=== PATIENT | female | born 1990 | race Caucasian/White ===

== ENCOUNTER 2020-07-12 07:06 | Inpatient (IN) | payer MEDICAID ==
[2020-07-12] MEDS ORDERED: Lidocaine 1% 50 ML MDV INJECT PRN (13:37)
[2020-07-12] MEDS ORDERED: Nalbuphine 10 MG/1 ML Vial IVPUSH PRN (13:37)
[2020-07-12] MEDS ORDERED: Sodium Chloride 0.9% 10 ML Syringe FLUSH PRN (13:37)
[2020-07-12] MEDS ORDERED: Oxytocin/Lactated Ringers 10 UNIT/1,000 ML BAG IV SCH ×2 (13:45)
--- NOTE | 2020-07-12 14:01 | PCM.LDHP ---
L&D History of Present Illness - General Date of Service: 07/12/20 Admit Problem/Dx: Patient Status Order with Admit Dx/Problem 07/12/20 13:37 Patient Status [ADT] Routine Admission Diagnosis/Problem Admission Diagnosis/Problem Source of Information: Patient History Limitations: Reports: No Limitations - History of Present Illness Introduction:: Patient is a 29 year old GBS - O- SAB x 1 who present today at 39-3 weeks gestational age for induction of labor. She denies any contractions, vaginal bleeding or leaking of fluid. She reports good movement. Present Illness Comments:: Kylie Poole is a GBS- O- 29 year old SAB x 1 female at 39-3 weeks gestation age (NIMISHA 07/16/20) by 12 week US and LMP who presents today for induction of labor. Patient noted tobacco use until 20 weeks and reports a history of anxiety. Patient received routine care. First trimester pap smear demonstrated LGSIL. Colposcopy done that demonstrated mile white epithelium at the 9 o'clock position. No other known complications during her . She received flu vaccine 04/21. Tdap vaccine not given. She received RhoGAM 04/23/20. She does report that her significant other tested positive for COVID-19 5 weeks prior; she reports that she had similar symptoms but tested negative. She continues to have decreased taste and smell but is otherwise doing fine. OBGYN History 04/11/19: complete spontaneous at 6 weeks gestational age G2: current labs: Blood type:O- Antibody screen: Negative Rubella status: non immune Hepatitis B surface antigen: negative RPR: negative HIV: negative Gonorrhea: Negative Chlamydia: negative Anatomy US: Uriostegui IUP with normal growth, CHRISS, placental location and anatomy One hour glucose tolerance test: 104 Second trimester hemoglobin: 11.8 Platelets: 230,000 GBS status: negative - Related Data Allergies/Adverse Reactions: Allergies Allergy/AdvReac Type Severity Reaction Status Date / Time Latex, Natural Rubber Allergy Hives Verified 07/12/20 13:36 Home Medications: Home Meds Pnv,Calcium 72/Iron/Folic Acid [ Vitamin with Low Iron] 1 each PO DAILY 07/12/20 [History] Past Medical History - Past Health History Medical/Surgical History: Denies Medical/Surgical History Genitourinary History: Reports: Other (See Below) (Nephrolithiasis) Psychiatric History: Reports: Anxiety Social & Family History - Family History Family Medical History: No Pertinent Family History H&P Review of Systems - Review of Systems: Review Of Systems: See Below General: Reports: No Symptoms HEENT: Reports: Other (Decreased taste and smell). Denies: Ear Pain, Eye Pain, Rhinitis, Sinus Congestion, Sore Throat Pulmonary: Reports: No Symptoms Cardiovascular: Reports: No Symptoms Gastrointestinal: Reports: No Symptoms Genitourinary: Reports: No Symptoms Musculoskeletal: Reports: No Symptoms Skin: Reports: No Symptoms Psychiatric: Reports: No Symptoms Neurological: Reports: No Symptoms L&D Exam - Exam Exam: See Below - Vital Signs Weight: 206 lb - OB Specific Movement: Active Heart Tones: Present - Salas Score Salas Score Cervix Position: Midposition Salas Score Consistency: Medium Salas Score Effacement: 51-70% Salas Score Dilation: 1-2 cm Salas Score Infant's Station: -3 Salas Score Total: 5 - Exam General: Alert, Oriented HEENT: Conjunctiva Clear, EOMI, Hearing Intact Neck: Supple, Trachea Midline Lungs: Clear to Auscultation, Normal Respiratory Effort Cardiovascular: Regular Rate, Regular Rhythm GI/Abdominal Exam: Normal Bowel Sounds, Soft, Non-Tender Extremities: Normal Inspection, Non-Tender, No Pedal Edema, Normal Capillary Refill Skin: Warm, Dry, Intact Psychiatric: Alert, Normal Affect, Normal Mood - Patient Data Result Diagrams: 07/12/20 13:50 - Problem List (1) Not immune to rubella SNOMED Code(s): 683679951 ICD Code: Z78.9 - OTHER SPECIFIED HEALTH STATUS Status: Acute Current Visit: Yes (2) 39 weeks gestation of SNOMED Code(s): 74345410 ICD Code: Z3A.39 - 39 WEEKS GESTATION OF Status: Acute Current Visit: Yes (3) Encounter for induction of labor SNOMED Code(s): 874669731 ICD Code: Z34.90 - ENCNTR FOR SUPRVSN OF NORMAL , UNSP, UNSP TRIMESTER Status: Acute Current Visit: Yes (4) Rh negative status during SNOMED Code(s): 706738656 ICD Code: O26.899 - OTH RELATED CONDITIONS, UNSPECIFIED TRIMESTER; Z67.91 - UNSPECIFIED BLOOD TYPE, RH NEGATIVE Status: Acute Current Visit: Yes (5) Tobacco use during SNOMED Code(s): 425923661868380 ICD Code: O99.330 - SMOKING (TOBACCO) COMPLICATING , UNSP TRIMESTER Status: Acute Current Visit: Yes Problem List Initiated/Reviewed/Updated: Yes Orders Last 24hrs: Active Orders 24 hr Category Date Time Status Patient Status [ADT] Routine ADT 07/12/20 13:37 Active Activity as Tolerated [RC] PFP Care 07/12/20 13:37 Active Communication Order [RC] ASDIRECTED Care 07/12/20 13:37 Active Heart Tones [RC] ASDIRECTED Care 07/12/20 13:38 Active Non Stress Test [RC] PER UNIT ROUTINE Care 07/12/20 13:37 Active Notify Provider [RC] PFP Care 07/12/20 13:37 Active Notify Provider [RC] PRN Care 07/12/20 13:37 Active Peripheral IV Care [RC] . DIRECTED Care 07/12/20 13:38 Active Urinary Catheter Assessment [RC] ASDIRECTED Care 07/12/20 13:37 Active Vital Signs [RC] PER UNIT ROUTINE Care 07/12/20 13:37 Active Regular Diet [DIET] Diet 07/12/20 Lunch Active BLOOD BANK HOLD SPECIMEN [BBK] Routine Lab 07/12/20 13:37 Ordered CBC WITH AUTO DIFF [HEME] Routine Lab 07/12/20 13:37 Ordered CORONAVIRUS COVID-19 LEE ANN [MOLEC] Stat Lab 07/12/20 13:40 Ordered RAPID PLASMA REAGIN,RPR [CHEM] Routine Lab 07/12/20 13:37 Ordered Lactated Ringers [Ringers, Lactated] 1,000 ml Med 07/12/20 13:45 Active IV ASDIRECTED Lidocaine 1% [Xylocaine 1%] Med 07/12/20 13:37 Active 50 ml INJECT ONETIME PRN Nalbuphine [Nubain] Med 07/12/20 13:37 Active 10 mg IVPUSH Q2H PRN Oxytocin/Lactated Ringers [Pitocin in LR 10 Units/1,000 Med 07/12/20 13:45 Active ML] 10 unit in 1,000 ml IV .CONTINUOUS Oxytocin/Lactated Ringers [Pitocin in LR 10 Units/1,000 Med 07/12/20 13:45 Active ML] 10 unit in 1,000 ml IV TITRATE Sodium Chloride 0.9% [Saline Flush] Med 07/12/20 13:37 Active 10 ml FLUSH ASDIRECTED PRN Electronic Heart Tones Ext w TOCO [WOMSER] Oth 07/12/20 13:37 Ordered Routine Electronic Heart Tones Internal [WOMSER] Per Unit Oth 07/12/20 13:37 Ordered Routine Peripheral IV Insertion Adult [OM.PC] Routine Oth 07/12/20 13:37 Ordered Resuscitation Status Routine Resus Stat 07/12/20 13:37 Ordered Assessment/Plan Comment:: 29 year old at 39-3 weeks gestational age who presented for induction of labor. 1. O- with negative antibody screen - RhoGAM given 04/23/20; RhoGAM to be given following delivery 2. Rubella nonimmune - vaccine indicated prior to discharge 3. GBS negative 4. LGSIL; status post colposcopy, recheck pap smear and colposcopy 5. Tobacco use during , quit at 20 weeks gestational age 6. Induction of labor with Cytotec for cervical ripening, Pitocin augmentation as indicated. Consider AROM. 7. Continuous monitoring 7. Small amounts of regular diet 8. Desires epidural 9. Activity as tolerated 10. Anticipate vaginal delivery unless otherwise indicated 11. Plans to breastfeed
[2020-07-12] MEDS: Lactated Ringers 1,000 ML IV SCH (14:10)
--- NOTE | 2020-07-12 15:57 | PCM.PNLD ---
Labor Progress Note - VS & Meds Vital Signs: Last Vital Signs Temp 36.8 C 07/12/20 13:37 Pulse 77 07/12/20 15:00 Resp 16 07/12/20 13:37 BP 107/76 07/12/20 15:00 Pulse Ox Active Medications: Current Medications Oxytocin/Lactated Ringer's (Pitocin In Lr 10 Units/1,000 Ml) 10 unit in 1,000 mls @ 12 mls/hr IV TITRATE ELVIA; Protocol Last Titration: 07/12/20 15:23 Dose: 6 munits/min, 36 mls/hr Documented by: Oxytocin/Lactated Ringer's (Pitocin In Lr 10 Units/1,000 Ml) 10 unit in 1,000 mls @ 500 mls/hr IV .CONTINUOUS ELVIA Lactated Ringer's (Ringers, Lactated) 1,000 mls @ 100 mls/hr IV ASDIRECTED ELVIA Last Admin: 07/12/20 14:10 Dose: 100 mls/hr Documented by: Lidocaine HCl (Lidocaine 1% 50 Ml Mdv) 50 ml INJECT ONETIME PRN PRN Reason: Breakthrough Pain Nalbuphine HCl (Nalbuphine 10 Mg/1 Ml Vial) 10 mg IVPUSH Q2H PRN PRN Reason: Pain Sodium Chloride (Sodium Chloride 0.9% 10 Ml Syringe) 10 ml FLUSH ASDIRECTED PRN PRN Reason: Keep Vein Open - Uterine Contractions Uterine Monitoring Mode: External [place] Tract Contraction Intensity: Irritability Uterine Resting Tone: Soft - Monitoring Monitor Mode: External Ultrasound Heart Rate (FHR) Baseline: 130 Heart Rate (FHR) Variability: Moderate (6-25 bmp) Accelerations: Present, 10x10 (=/<32 wks) Decelerations: None - Vaginal Exam Dilation (cm): 1-2 Effacement (Percent): 50 Station: -3 Cervical Position: Posterior - Labor Progress (Free Text) Labor Progress: Assumed care of this patient from Dr. Suero. Patient here for IOL. Just turned up to 6 of pitocin. Reviewed would like to add in method of cervical ripening. Discussed option of chang bulb, but patient concerned for discomfort. Reviewed we could otherwise consider pause of Pitocin and placement of Cytotec. She prefers this option. Will stop and start Cytotec in about 45 minutes.
[2020-07-12] MEDS: Misoprostol 25 MCG (1/4 of 100 MCG) Tab VAG PRN ×2 (16:42→20:32)
[2020-07-12] MEDS ORDERED: fentaNYL 100 MCG/2 ML SDV EPIDUR PRN (21:40)
[2020-07-12] MEDS ORDERED: ePHEDrine 50 MG/ML SDV IVPUSH PRN (21:40)
[2020-07-12] MEDS ORDERED: diphenhydrAMINE 50 MG/ML SDV IVPUSH PRN (21:40)
[2020-07-13] MEDS: Misoprostol 25 MCG (1/4 of 100 MCG) Tab VAG PRN (00:41)
--- NOTE | 2020-07-13 07:04 | PCM.PNLD ---
Labor Progress Note - VS & Meds Vital Signs: Last Vital Signs Temp 36.8 C 07/12/20 13:37 Pulse 84 07/12/20 15:30 Resp 16 07/12/20 13:37 BP 108/57 L 07/12/20 15:30 Pulse Ox Active Medications: Current Medications Diphenhydramine HCl (Diphenhydramine 50 Mg/Ml Sdv) 25 mg IVPUSH Q6H PRN PRN Reason: pruritis Ephedrine Sulfate (Ephedrine 50 Mg/Ml Sdv) 5 mg IVPUSH ASDIRECTED PRN PRN Reason: Hypotension Fentanyl (Fentanyl 100 Mcg/2 Ml Sdv) 100 mcg EPIDUR Q3H PRN PRN Reason: Pain Fentanyl/Bupivacaine HCl (Bupivacaine/Fentanyl/Ns 100 Ml Bag) 100 ml EPIDUR ASDIRECTED PRN PRN Reason: Pain Oxytocin/Lactated Ringer's (Pitocin In Lr 10 Units/1,000 Ml) 10 unit in 1,000 mls @ 12 mls/hr IV TITRATE ELVIA; Protocol Last Titration: 07/13/20 06:09 Dose: 0 munits/min, 0 mls/hr Documented by: Oxytocin/Lactated Ringer's (Pitocin In Lr 10 Units/1,000 Ml) 10 unit in 1,000 mls @ 500 mls/hr IV .CONTINUOUS ELVIA Lactated Ringer's (Ringers, Lactated) 1,000 mls @ 100 mls/hr IV ASDIRECTED ELVIA Last Infusion: 07/13/20 06:15 Dose: 100 mls/hr Documented by: Lidocaine HCl (Lidocaine 1% 50 Ml Mdv) 50 ml INJECT ONETIME PRN PRN Reason: Breakthrough Pain Nalbuphine HCl (Nalbuphine 10 Mg/1 Ml Vial) 10 mg IVPUSH Q2H PRN PRN Reason: Pain Sodium Chloride (Sodium Chloride 0.9% 10 Ml Syringe) 10 ml FLUSH ASDIRECTED PRN PRN Reason: Keep Vein Open Discontinued Medications Misoprostol (Misoprostol 25 Mcg (1/4 Of 100 Mcg) Tab) 25 mcg VAG Q4H PRN PRN Reason: cervical ripening Last Admin: 07/13/20 00:41 Dose: 25 mcg Documented by: - Uterine Contractions Uterine Monitoring Mode: External [place] Contraction Intensity: Mild to Moderate Uterine Resting Tone: Soft - Monitoring Monitor Mode: External Ultrasound Heart Rate (FHR) Baseline: 135 Heart Rate (FHR) Variability: Moderate (6-25 bmp) Accelerations: Present, 15x15 Decelerations: Late, Intermittent (<50% x 20 min) - Vaginal Exam Dilation (cm): 2 Effacement (Percent): 70 Station: -2 Cervical Position: Posterior - Labor Progress (Free Text) Labor Progress: S/p 3 doses of Cytotec over night. Was started on pitocin. Was only on 2 and started having some late decelerations. Resolved with discontinuing pitocin. AROM done with release of clear fluid. Will monitor for a few hours. Currently rates contractions 3/10. If not more uncomfortable can consider restarting pitocin
[2020-07-13] MEDS: Lactated Ringers 1,000 ML IV SCH ×4 (13:10→22:05)
--- NOTE | 2020-07-13 13:20 | PCM.PREANE ---
Preanesthetic Assessment - Procedure Proposed Procedure: Epidural - Anesthesia/Transfusion/Family Hx Anesthesia History: No Prior Anesthesia Family History of Anesthesia Reaction: No Transfusion History: No Prior Transfusion(s) Intubation History: Unknown - Review of Systems General: No Symptoms Pulmonary: No Symptoms (Significant other + for Covid/patient tests negative: decreased taste and smell noted, but resumed currently: quit smoking at 20 weeks.) Cardiovascular: No Symptoms Gastrointestinal: No Symptoms (GERD) Neurological: No Symptoms (chronic back pain: 01/10) Other: Reports: Anxiety - Physical Assessment NPO Status Date: 07/13/20 NPO Status Time: 07:00 Vital Signs: Last Vital Signs Temp 36.8 C 07/12/20 13:37 Pulse 87 07/13/20 08:01 Resp 16 07/12/20 13:37 BP 117/71 07/13/20 05:31 Pulse Ox Height: 1.6 m Weight: 93.44 kg ASA Class: 2 Mental Status: Alert & Oriented x3 Airway Class: Mallampati = 2 Dentition: Reports: Normal Dentition, Caries Thyro-Mental Finger Breadths: 3 Mouth Opening Finger Breadths: 3 ROM/Head Extension: Full Lungs: Clear to Auscultation, Normal Respiratory Effort Cardiovascular: Regular Rate, Regular Rhythm, No Murmurs - Lab Values: Laboratory Last Values WBC 9.14 K/mm3 (3.98-10.04) 07/12/20 13:50 RBC 4.35 M/mm3 (3.98-5.22) 07/12/20 13:50 Hgb 12.3 gm/dl (11.2-15.7) 07/12/20 13:50 Hct 36.7 % (34.1-44.9) 07/12/20 13:50 MCV 84.4 fl (79.4-94.8) 07/12/20 13:50 MCH 28.3 pg (25.6-32.2) 07/12/20 13:50 MCHC 33.5 g/dl (32.2-35.5) 07/12/20 13:50 RDW Std Deviation 44.7 fL (36.4-46.3) 07/12/20 13:50 Plt Count 256 K/mm3 (182-369) 07/12/20 13:50 MPV 10.7 fl (9.4-12.3) 07/12/20 13:50 Neut % (Auto) 74.0 % (34.0-71.1) H 07/12/20 13:50 Lymph % (Auto) 15.0 % (19.3-51.7) L 07/12/20 13:50 Maries % (Auto) 9.4 % (4.7-12.5) 07/12/20 13:50 Eos % (Auto) 1.1 (0.7-5.8) 07/12/20 13:50 Baso % (Auto) 0.2 % (0.1-1.2) 07/12/20 13:50 Neut # (Auto) 6.76 K/mm3 (1.56-6.13) H 07/12/20 13:50 Lymph # (Auto) 1.37 K/mm3 (1.18-3.74) 07/12/20 13:50 Maries # (Auto) 0.86 K/mm3 (0.24-0.36) H 07/12/20 13:50 Eos # (Auto) 0.10 K/mm3 (0.04-0.36) 07/12/20 13:50 Baso # (Auto) 0.02 K/mm3 (0.01-0.08) 07/12/20 13:50 RPR Non-reactive (NONREACTIVE) 07/12/20 13:50 SARS-CoV-2 RNA (LEE ANN) Negative (NEGATIVE) 07/12/20 14:17 Above labs reviewed and noted and within acceptable ranges to proceed with epidural as requested. - Allergies Allergies/Adverse Reactions: Allergies Allergy/AdvReac Type Severity Reaction Status Date / Time Latex, Natural Rubber Allergy Hives Verified 07/12/20 13:36 - Anesthesia Plan Pre-Op Medication Ordered: None - Acknowledgements Anesthesia Type Planned: Epidural Pt an Appropriate Candidate for the Planned Anesthesia: Yes Alternatives and Risks of Anesthesia Discussed w Pt/Guardian: Yes Pt/Guardian Understands and Agrees with Anesthesia Plan: Yes PreAnesthesia Questionnaire - Past Health History Medical/Surgical History: Denies Medical/Surgical History HEENT History: Reports: None Genitourinary History: Reports: Other (See Below) OTA History: Reports: Psychiatric History: Reports: Anxiety - Infectious Disease History Infectious Disease History: Reports: None - Past Surgical History HEENT Surgical History: Reports: Oral Surgery - SUBSTANCE USE Tobacco Use Status *Q: Former Tobacco User Tobacco Use Within Last Twelve Months: Cigarettes Second Hand Smoke Exposure: No Recreational Drug Use History: No - HOME MEDS Home Medications: Home Meds Pnv,Calcium 72/Iron/Folic Acid [ Vitamin with Low Iron] 1 each PO DAILY 07/12/20 [History] - CURRENT (IN HOUSE) MEDS Current Meds: Current Medications Diphenhydramine HCl (Diphenhydramine 50 Mg/Ml Sdv) 25 mg IVPUSH Q6H PRN PRN Reason: pruritis Ephedrine Sulfate (Ephedrine 50 Mg/Ml Sdv) 5 mg IVPUSH ASDIRECTED PRN PRN Reason: Hypotension Fentanyl (Fentanyl 100 Mcg/2 Ml Sdv) 100 mcg EPIDUR Q3H PRN PRN Reason: Pain Fentanyl/Bupivacaine HCl (Bupivacaine/Fentanyl/Ns 100 Ml Bag) 100 ml EPIDUR ASDIRECTED PRN PRN Reason: Pain Oxytocin/Lactated Ringer's (Pitocin In Lr 10 Units/1,000 Ml) 10 unit in 1,000 mls @ 12 mls/hr IV TITRATE ELVIA; Protocol Last Titration: 07/13/20 06:09 Dose: 0 munits/min, 0 mls/hr Documented by: Oxytocin/Lactated Ringer's (Pitocin In Lr 10 Units/1,000 Ml) 10 unit in 1,000 mls @ 500 mls/hr IV .CONTINUOUS ELVIA Lactated Ringer's (Ringers, Lactated) 1,000 mls @ 100 mls/hr IV ASDIRECTED ELVIA Last Admin: 07/13/20 13:10 Dose: 999 mls/hr Documented by: Lidocaine HCl (Lidocaine 1% 50 Ml Mdv) 50 ml INJECT ONETIME PRN PRN Reason: Breakthrough Pain Nalbuphine HCl (Nalbuphine 10 Mg/1 Ml Vial) 10 mg IVPUSH Q2H PRN PRN Reason: Pain Sodium Chloride (Sodium Chloride 0.9% 10 Ml Syringe) 10 ml FLUSH ASDIRECTED PRN PRN Reason: Keep Vein Open Discontinued Medications Misoprostol (Misoprostol 25 Mcg (1/4 Of 100 Mcg) Tab) 25 mcg VAG Q4H PRN PRN Reason: cervical ripening Last Admin: 07/13/20 00:41 Dose: 25 mcg Documented by:
[2020-07-13] MEDS: Bupivacaine/fentaNYL/NS 100 ML Bag EPIDUR PRN ×2 (13:26→22:03)
--- NOTE | 2020-07-13 16:28 | PCM.PNLD ---
Labor Progress Note - VS & Meds Vital Signs: Last Vital Signs Temp 36.8 C 07/12/20 13:37 Pulse 87 07/13/20 08:01 Resp 16 07/12/20 13:37 BP 117/71 07/13/20 05:31 Pulse Ox Active Medications: Current Medications Diphenhydramine HCl (Diphenhydramine 50 Mg/Ml Sdv) 25 mg IVPUSH Q6H PRN PRN Reason: pruritis Ephedrine Sulfate (Ephedrine 50 Mg/Ml Sdv) 5 mg IVPUSH ASDIRECTED PRN PRN Reason: Hypotension Fentanyl (Fentanyl 100 Mcg/2 Ml Sdv) 100 mcg EPIDUR Q3H PRN PRN Reason: Pain Last Admin: 07/13/20 13:27 Dose: 100 mcg Documented by: Fentanyl/Bupivacaine HCl (Bupivacaine/Fentanyl/Ns 100 Ml Bag) 100 ml EPIDUR ASDIRECTED PRN PRN Reason: Pain Last Admin: 07/13/20 13:26 Dose: 100 ml Documented by: Oxytocin/Lactated Ringer's (Pitocin In Lr 10 Units/1,000 Ml) 10 unit in 1,000 mls @ 12 mls/hr IV TITRATE ELVIA; Protocol Last Titration: 07/13/20 15:15 Dose: 3 munits/min, 18 mls/hr Documented by: Oxytocin/Lactated Ringer's (Pitocin In Lr 10 Units/1,000 Ml) 10 unit in 1,000 mls @ 500 mls/hr IV .CONTINUOUS ELVIA Lactated Ringer's (Ringers, Lactated) 1,000 mls @ 100 mls/hr IV ASDIRECTED ELVIA Last Admin: 07/13/20 13:47 Dose: 250 mls/hr Documented by: Lidocaine HCl (Lidocaine 1% 50 Ml Mdv) 50 ml INJECT ONETIME PRN PRN Reason: Breakthrough Pain Nalbuphine HCl (Nalbuphine 10 Mg/1 Ml Vial) 10 mg IVPUSH Q2H PRN PRN Reason: Pain Sodium Chloride (Sodium Chloride 0.9% 10 Ml Syringe) 10 ml FLUSH ASDIRECTED PRN PRN Reason: Keep Vein Open Discontinued Medications Misoprostol (Misoprostol 25 Mcg (1/4 Of 100 Mcg) Tab) 25 mcg VAG Q4H PRN PRN Reason: cervical ripening Last Admin: 03/13/21 00:41 Dose: 25 mcg Documented by: - Uterine Contractions Uterine Monitoring Mode: External [place] Tract Contraction Intensity: Moderate to Strong Uterine Resting Tone: Soft - Monitoring Monitor Mode: External Ultrasound Heart Rate (FHR) Baseline: 145 Heart Rate (FHR) Variability: Moderate (6-25 bmp) Accelerations: Present, 15x15 Decelerations: Late, Intermittent (<50% x 20 min) Strip Review: Category II - Vaginal Exam Dilation (cm): 3 Effacement (Percent): 90 Station: -2 Cervical Position: Midposition - Labor Progress (Free Text) Labor Progress: Patient became more uncomfortable throughout the day. Got her epidural around 1330. Pitocin started 1430. Just recently only on 3 but with again episode of recurrent late decelerations. Pitocin discontinued by RN. I presented. Resolution of tracing findings. IUPC placed. Pitocin restarted at 1. Reviewed findings. If unable to augment may require delivery via c-s. She expressed understanding
--- NOTE | 2020-07-13 21:36 | PCM.PNLD ---
Labor Progress Note - VS & Meds Vital Signs: Last Vital Signs Temp 36.8 C 07/12/20 13:37 Pulse 87 07/13/20 08:01 Resp 16 07/12/20 13:37 BP 117/71 07/13/20 05:31 Pulse Ox Active Medications: Current Medications Diphenhydramine HCl (Diphenhydramine 50 Mg/Ml Sdv) 25 mg IVPUSH Q6H PRN PRN Reason: pruritis Ephedrine Sulfate (Ephedrine 50 Mg/Ml Sdv) 5 mg IVPUSH ASDIRECTED PRN PRN Reason: Hypotension Fentanyl (Fentanyl 100 Mcg/2 Ml Sdv) 100 mcg EPIDUR Q3H PRN PRN Reason: Pain Last Admin: 07/13/20 13:27 Dose: 100 mcg Documented by: Fentanyl/Bupivacaine HCl (Bupivacaine/Fentanyl/Ns 100 Ml Bag) 100 ml EPIDUR ASDIRECTED PRN PRN Reason: Pain Last Admin: 07/13/20 13:26 Dose: 100 ml Documented by: Oxytocin/Lactated Ringer's (Pitocin In Lr 10 Units/1,000 Ml) 10 unit in 1,000 mls @ 12 mls/hr IV TITRATE ELVIA; Protocol Last Titration: 07/13/20 21:17 Dose: 3 munits/min, 18 mls/hr Documented by: Oxytocin/Lactated Ringer's (Pitocin In Lr 10 Units/1,000 Ml) 10 unit in 1,000 mls @ 500 mls/hr IV .CONTINUOUS ELVIA Lactated Ringer's (Ringers, Lactated) 1,000 mls @ 100 mls/hr IV ASDIRECTED ELVIA Last Admin: 07/13/20 17:23 Dose: 250 mls/hr Documented by: Lidocaine HCl (Lidocaine 1% 50 Ml Mdv) 50 ml INJECT ONETIME PRN PRN Reason: Breakthrough Pain Nalbuphine HCl (Nalbuphine 10 Mg/1 Ml Vial) 10 mg IVPUSH Q2H PRN PRN Reason: Pain Sodium Chloride (Sodium Chloride 0.9% 10 Ml Syringe) 10 ml FLUSH ASDIRECTED PRN PRN Reason: Keep Vein Open Discontinued Medications Misoprostol (Misoprostol 25 Mcg (1/4 Of 100 Mcg) Tab) 25 mcg VAG Q4H PRN PRN Reason: cervical ripening Last Admin: 03/13/21 00:41 Dose: 25 mcg Documented by: - Uterine Contractions Uterine Monitoring Mode: IUPC Contraction Intensity: Strong Uterine Resting Tone: Soft - Monitoring Monitor Mode: External Ultrasound Heart Rate (FHR) Baseline: 140 Heart Rate (FHR) Variability: Moderate (6-25 bmp) Accelerations: Present, 15x15 Strip Review: Category I - Vaginal Exam Dilation (cm): 5 Effacement (Percent): 80 Station: -1 Cervical Position: Midposition - Labor Progress (Free Text) Labor Progress: Has been on 2 of pitocin since about 1630. At 1630 was 3 cm per my check. At 1900 was 5 cm per RN. Currently at 2110 is still about 5 cm. Reviewed have not previously increased pitocin further due to late decelerations that tend to occur. We can gently try to go up, but might not be able to augment beyond value of 2. If this is the case it might not be we are able to get her completely dilated. Patient and family express understanding. Still desire to continue to work towards vaginal delivery
[2020-07-14] MEDS ORDERED: Bupivacaine 0.25% 10 ML SDV ONE
[2020-07-14] MEDS: Lactated Ringers 1,000 ML IV SCH (04:35)
[2020-07-14] MEDS ORDERED: Metoclopramide 10 MG/2 ML SDV IVPUSH ONE (05:37)
[2020-07-14] MEDS ORDERED: ceFAZolin 2 GM in Premix Bag 1 BAG IV ONE (05:37)
[2020-07-14] MEDS ORDERED: Citric Acid/Sodium Citrate Solution 30 ML Cup PO ONE (05:37)
[2020-07-14] MEDS ORDERED: Azithromycin 500 MG in Sodium Chloride 0.9% 250 ML IV ONE (05:37)
--- NOTE | 2020-07-14 05:37 | PCM.SN.2 ---
- Free Text/Narrative Note: At 1230 patient thought to be 6-7 on RN exam. Just checked about 3.5 hours later and noted to be actually potentially less dilated per same RN. Reviewed with patient. At this point have concerns for CPD. Would recommend . Reviewed risks/benefits. Family agrees. OR and Peds to be notified Sheryl Huff MD
[2020-07-14] MEDS ORDERED: HYDROmorphone 0.5 MG/0.5 ML Syringe IVPUSH PRN (07:01)
[2020-07-14] MEDS ORDERED: Ondansetron 4 MG/2 ML SDV IVPUSH PRN (07:01)
[2020-07-14] MEDS ORDERED: diphenhydrAMINE 50 MG/ML SDV IVPUSH PRN ×2 (07:01→09:10)
[2020-07-14] MEDS ORDERED: ePHEDrine 50 MG/ML SDV IVPUSH PRN (07:01)
[2020-07-14] MEDS ORDERED: fentaNYL 100 MCG/2 ML SDV IVPUSH PRN (07:01)
[2020-07-14] MEDS ORDERED: fentaNYL 100 MCG/2 ML SDV ONE (07:12)
[2020-07-14] MEDS ORDERED: Oxytocin 10 Units/1 ML SDV ONE (07:12)
[2020-07-14] MEDS ORDERED: Ondansetron 4 MG/2 ML SDV ONE (07:12)
[2020-07-14] MEDS ORDERED: Lactated Ringers 2,000 ML ONE (07:12)
[2020-07-14] MEDS ORDERED: Ketorolac 30 MG/ML SDV ONE (07:12)
[2020-07-14] MEDS ORDERED: ceFAZolin 1 GM Vial ONE (07:12)
[2020-07-14] MEDS ORDERED: Lidocaine 2% with EPINEPHrine 1:200,000 20 ML SDV ONE (07:16)
--- NOTE | 2020-07-14 07:59 | PCM.POSTAN ---
POST ANESTHESIA ASSESSMENT - MENTAL STATUS Mental Status: Alert - VITAL SIGNS Vital Signs: Last Vital Signs Temp 38.1 07/14/20 0748 Pulse 140 07/14/20 0748 Resp 14 07/14/20 0748 BP 104/76 07/14/20 0748 Pulse Ox 97% 07/14/20 0748 - RESPIRATORY Respiratory Status: Respiratory Rate WNL, Airway Patent, O2 Saturation Stable - CARDIOVASCULAR CV Status: Pulse Rate WNL, Blood Pressure Stable - GASTROINTESTINAL GI Status: No Symptoms - POST OP HYDRATION Hydration Status: Adequate & Stable
[2020-07-14] MEDS ORDERED: Morphine PF 10 MG/10 ML SDV ONE (08:00)
--- NOTE | 2020-07-14 08:33 | PCM.OPNOTE ---
- General Post-Op/Procedure Note Date of Surgery/Procedure: 07/14/20 Operative Procedure(s): Primary low transverse Findings: Baby boy in vertex presentation, ROP. AGPARS of 8 & 9. Weight of 8 lbs 4 oz. Normal appearance of the uterus, fallopian tubes, and ovaries. Pre Op Diagnosis: 39 weeks. FTP in 1st stage of labor Post-Op Diagnosis: Same. ROP presentation Anesthesia Technique: Epidural Primary Surgeon: Sheryl Huff Secondary Surgeon: Marianne Trimble Anesthesia Provider: Pricilla Max Reason Philosophy Faculty Member Was Necessary: BMI of patient. Speed and safety of procedure Pathology: Cold blood collected. Placenta discarded Fluid Replacement, Intraop: 800 Output, Urine Amount: 275 EBL in mLs: 1,000 Complications: None Condition: Good Free Text/Narrative:: The risks, benefits, indications, potential complications, and alternatives were explained to the patient and informed consent obtained. After induction of anesthesia, the patient was placed in a supine position and then draped and prepped in the usual sterile manner. A Pfannenstiel incision was made and carried down through the subcutaneous tissue to the fascia. Fascial incision was made and extended transversely. The fascia was from the underlying rectus tissue superiorly and inferiorly. The peritoneum was identified and entered. Peritoneal incision was extended longitudinally. The utero-vesical peritoneal reflection was incised transversely and the bladder flap was bluntly freed from the lower uterine segment. A low transverse uterine incision was made sharply with a scalpel and extended bluntly in a cephalocaudad direction. A baby boy was delivered from ROP presentation with APGARS as above. After the umbilical cord was clamped and cut cord blood was obtained for evaluation. The placenta was removed intact and appeared normal. The uterus was exteriorized and cleared of clots. The uterine outline, tubes and ovaries appeared normal. There was brisk bleeding from a vessel at a small extension at the left aspect of the hysterotomy. This was controlled with a running, locked 0 Vicryl. The remainder of the uterine incision was closed with running locked sutures of 0 Vicryl. Hemostasis was obtained with a second, imbricating layer of 0 Vicryl. The uterus was then placed back into the abdomen. Small vessels cauterized on surface of uterus which were bleeding. The infracolic gutters were cleared of blood clots. Yonathan-Seal placed across hysterotomy The fascia was then reapproximated with running sutures of 0 Vicryl. The subcutaneous tissue was irrigated with sterile warm normal saline, hemostasis obtained with cautery. This layer was closed with a running 0 Vicryl. The skin was reapproximated with running subcuticular 4-0 Monocryl suture and sealed with Dermabond. Instrument, sponge, and needle counts were correct prior the abdominal closure and at the conclusion of the case.
[2020-07-14] MEDS ORDERED: Docusate Sodium 100 MG Cap PO PRN (09:10)
[2020-07-14] MEDS ORDERED: Acetaminophen/oxyCODONE 325-5 MG Tab PO PRN (09:10)
[2020-07-14] MEDS ORDERED: Naloxone 0.4 MG/ML SDV IVPUSH PRN (09:10)
[2020-07-14] MEDS ORDERED: Ondansetron 4 MG/2 ML SDV IV PRN (09:10)
[2020-07-14] MEDS ORDERED: Dextrose 5%-Lactated Ringers 1,000 ML IV SCH (09:10)
[2020-07-14] MEDS: Ketorolac 30 MG/ML SDV IVPUSH SCH ×2 (13:28→20:40)
[2020-07-14] MEDS: Acetaminophen/oxyCODONE 325-5 MG Tab PO PRN (18:03)
[2020-07-15] MEDS: Acetaminophen/oxyCODONE 325-5 MG Tab PO PRN ×5 (00:41→22:10)
[2020-07-15] MEDS: Ketorolac 30 MG/ML SDV IVPUSH SCH (01:32)
--- NOTE | 2020-07-15 07:15 | PCM.PNPP ---
- General Info Date of Service: 07/15/20 Functional Status: Reports: Pain Controlled, Tolerating Diet, Ambulating, Urinating - Review of Systems General: Reports: No Symptoms Pulmonary: Reports: No Symptoms Cardiovascular: Reports: No Symptoms Gastrointestinal: Reports: Abdominal Pain (managed with medications ) Genitourinary: Reports: No Symptoms Musculoskeletal: Reports: No Symptoms - Patient Data Vital Signs - Most Recent: Last Vital Signs Temp 36.2 C 07/15/20 02:58 Pulse 88 07/15/20 03:00 Resp 13 07/15/20 06:00 BP 108/59 L 07/15/20 02:58 Pulse Ox 99 07/15/20 06:00 Weight - Most Recent: 93.44 kg I&O - Last 24 Hours: Intake & Output 07/14/20 07/15/20 07/15/20 22:59 06:59 14:59 Intake Total 522 Output Total 2100 850 Balance -1578 -850 Lab Results - Last 24 Hours: Laboratory Results - last 24 hr 07/14/20 07/15/20 Range/Units 17:05 05:10 WBC 9.94 (3.98-10.04) K/mm3 RBC 3.03 L (3.98-5.22) M/mm3 Hgb 8.3 L D (11.2-15.7) gm/dl Hct 26.7 L (34.1-44.9) % MCV 88.1 D (79.4-94.8) fl MCH 27.4 (25.6-32.2) pg MCHC 31.1 L (32.2-35.5) g/dl RDW Std Deviation 47.2 H (36.4-46.3) fL Plt Count 184 (182-369) K/mm3 MPV 10.7 (9.4-12.3) fl Blood Type O NEGATIVE Gel Antibody Screen Negative Screen 1 ros/5 flds - neg RhIG Candidate? Yes Rhogam Indicated Yes, baby rh pos H Med Orders - Current: Current Medications Diphenhydramine HCl (Diphenhydramine 50 Mg/Ml Sdv) 25 mg IVPUSH Q6H PRN PRN Reason: pruritis Diphenhydramine HCl (Diphenhydramine 50 Mg/Ml Sdv) 25 mg IVPUSH Q6H PRN PRN Reason: Itching or Nausea Diphtheria/Tetanus/Acell Pertussis (Diphtheria,Pertussis(Acell),Tetanus Vaccine 0.5 Ml Syringe) 0.5 ml IM .ONCE ONE Stop: 07/15/20 09:01 Docusate Sodium (Docusate Sodium 100 Mg Cap) 100 mg PO Q12H PRN PRN Reason: Constipation Ephedrine Sulfate (Ephedrine 50 Mg/Ml Sdv) 5 mg IVPUSH ASDIRECTED PRN PRN Reason: Hypotension Fentanyl (Fentanyl 100 Mcg/2 Ml Sdv) 50 mcg IVPUSH Q20M PRN PRN Reason: Pain Hydromorphone HCl (Hydromorphone 0.5 Mg/0.5 Ml Syringe) 0.5 mg IVPUSH Q10M PRN PRN Reason: Pain (severe 7-10) Oxytocin/Lactated Ringer's (Pitocin In Lr 10 Units/1,000 Ml) 10 unit in 1,000 mls @ 12 mls/hr IV TITRATE [facility]; Protocol Last Titration: 07/14/20 05:28 Dose: 0 munits/min, 0 mls/hr Documented by: Ibuprofen (Ibuprofen 600 Mg Tab) 600 mg PO Q6H PRN PRN Reason: mild pain or fever Naloxone HCl (Naloxone 0.4 Mg/Ml Sdv) 0.1 mg IVPUSH SEECOMMENT PRN PRN Reason: Respiratory Depression Ondansetron HCl (Ondansetron 4 Mg/2 Ml Sdv) 4 mg IVPUSH ONETIME PRN PRN Reason: Nausea/Vomiting Ondansetron HCl (Ondansetron 4 Mg/2 Ml Sdv) 4 mg IV Q8H PRN PRN Reason: Nausea/Vomiting Oxycodone/Acetaminophen (Acetaminophen/Oxycodone 325-5 Mg Tab) 1 tab PO Q4H PRN PRN Reason: Pain (moderate 4-6) Oxycodone/Acetaminophen (Acetaminophen/Oxycodone 325-5 Mg Tab) 2 tab PO Q4H PRN PRN Reason: Pain (severe 7-10) Last Admin: 07/15/20 00:41 Dose: 2 tab Documented by: Discontinued Medications Cefazolin Sodium (Cefazolin 1 Gm Vial) Confirm Administered Dose 2 gm .ROUTE .STK-MED ONE Stop: 07/14/20 07:13 Citric Acid/Sodium Citrate (Citric Acid/Sodium Citrate Solution 30 Ml Cup) 30 ml PO ONETIME ONE Stop: 07/14/20 05:38 Last Admin: 07/14/20 06:08 Dose: 30 ml Documented by: Diphenhydramine HCl (Diphenhydramine 50 Mg/Ml Sdv) 25 mg IVPUSH Q6H PRN PRN Reason: pruritis Ephedrine Sulfate (Ephedrine 50 Mg/Ml Sdv) 5 mg IVPUSH ASDIRECTED PRN PRN Reason: Hypotension Fentanyl (Fentanyl 100 Mcg/2 Ml Sdv) 100 mcg EPIDUR Q3H PRN PRN Reason: Pain Last Admin: 07/13/20 13:27 Dose: 100 mcg Documented by: Fentanyl (Fentanyl 100 Mcg/2 Ml Sdv) Confirm Administered Dose 100 mcg .ROUTE .[facility]-MED ONE Stop: 07/14/20 07:13 Fentanyl/Bupivacaine HCl (Bupivacaine/Fentanyl/Ns 100 Ml Bag) 100 ml EPIDUR ASDIRECTED PRN PRN Reason: Pain Last Admin: 07/13/20 22:03 Dose: 100 ml Documented by: Oxytocin/Lactated Ringer's (Pitocin In Lr 10 Units/1,000 Ml) 10 unit in 1,000 mls @ 500 mls/hr IV .CONTINUOUS [facility] Lactated Ringer's (Ringers, Lactated) 1,000 mls @ 100 mls/hr IV ASDIRECTED [facility] Last Infusion: 07/14/20 06:00 Dose: 500 mls/hr Documented by: Cefazolin Sodium/Dextrose 2 gm (/ Premix) 50 mls @ 100 mls/hr IV ONETIME ONE Stop: 07/14/20 06:06 Azithromycin 500 mg/ Sodium (Chloride) 250 mls @ 250 mls/hr IV ONETIME ONE Stop: 07/14/20 06:36 Last Admin: 07/14/20 06:06 Dose: 250 mls/hr Documented by: Lactated Ringer's (Ringers, Lactated) Confirm Administered Dose 2,000 mls @ as directed .ROUTE .STK-MED ONE Stop: 07/14/20 07:13 Dextrose/Lactated Ringer's (Dextrose 5%-Lactated Ringers) 1,000 mls @ 125 mls/hr IV ASDIRECTED [facility] Stop: 07/14/20 17:09 Last Admin: 07/14/20 11:01 Dose: 125 mls/hr Documented by: Ketorolac Tromethamine (Ketorolac 30 Mg/Ml Sdv) Confirm Administered Dose 30 mg .ROUTE .[facility]MED ONE Stop: 07/14/20 07:13 Ketorolac Tromethamine (Ketorolac 30 Mg/Ml Sdv) 30 mg IVPUSH Q6H [facility] Stop: 07/15/20 01:31 Last Admin: 07/15/20 01:32 Dose: 30 mg Documented by: Lidocaine HCl (Lidocaine 1% 50 Ml Mdv) 50 ml INJECT ONETIME PRN PRN Reason: Breakthrough Pain Lidocaine/Epinephrine (Lidocaine 2% With Epinephrine 1:200,000 20 Ml Sdv) Confirm Administered Dose 20 ml .ROUTE .[place]-MED ONE Stop: 07/14/20 07:17 Metoclopramide HCl (Metoclopramide 10 Mg/2 Ml Sdv) 10 mg IVPUSH ONETIME ONE Stop: 07/14/20 05:38 Last Admin: 07/14/20 06:14 Dose: 10 mg Documented by: Miscellaneous Medication (Phenylephrine Hcl In 0.9% Nacl 1 Mg/10 Ml Syringe) 0 mg IVPUSH ONETIME ONE Stop: 07/14/20 07:02 Last Admin: 07/15/20 01:44 Dose: Not Given Documented by: Miscellaneous Medication (Phenylephrine Hcl In 0.9% Nacl 1 Mg/10 Ml Syringe) Confirm Administered Dose 1 mg .ROUTE .[facility]MED ONE Stop: 07/14/20 07:17 Misoprostol (Misoprostol 25 Mcg (1/4 Of 100 Mcg) Tab) 25 mcg VAG Q4H PRN PRN Reason: cervical ripening Last Admin: 07/13/20 00:41 Dose: 25 mcg Documented by: Nalbuphine HCl (Nalbuphine 10 Mg/1 Ml Vial) 10 mg IVPUSH Q2H PRN PRN Reason: Pain Ondansetron HCl (Ondansetron 4 Mg/2 Ml Sdv) Confirm Administered Dose 4 mg .ROUTE .[facility]MED ONE Stop: 07/14/20 07:13 Oxytocin (Oxytocin 10 Units/1 Ml Sdv) Confirm Administered Dose 10 unit .ROUTE .[facility]MED ONE Stop: 07/14/20 07:13 Sodium Chloride (Sodium Chloride 0.9% 10 Ml Syringe) 10 ml FLUSH ASDIRECTED PRN PRN Reason: Keep Vein Open - Infant Interaction Infant Disposition, : in Room with Family Infant Interaction: Holding Infant Infant Feeding: Attempted ; Nursed Fair/Poor Support Person: Significant Other - Recovery Exam Fundal Tone: Firm Fundal Level: 1 Fingerbreadths Below Umbilicus Fundal Placement: Midline Lochia Amount: Scant Lochia Color: Rubra/Red Perineum Description: Intact, Minimal Bruising/Swelling Episiotomy/Laceration: None Bladder Status: Nonpalpable Urinary Elimination: Voided - Exam General: Alert, Oriented, Cooperative Lungs: Clear to Auscultation, Normal Respiratory Effort Cardiovascular: Regular Rate, Regular Rhythm GI/Abdominal Exam: Soft, Tender (appropriate post op) Extremities: Normal Inspection Skin: Warm, Dry, Intact Wound/Incisions: Healing Well, No Drainage - Problem List & Annotations (1) 39 weeks gestation of SNOMED Code(s): 95540059 Code(s): Z3A.39 - 39 WEEKS GESTATION OF Status: Acute Current Visit: Yes (2) Encounter for induction of labor SNOMED Code(s): 184952899 Code(s): Z34.90 - ENCNTR FOR SUPRVSN OF NORMAL , UNSP, UNSP TRIMESTER Status: Acute Current Visit: Yes (3) Not immune to rubella SNOMED Code(s): 163735580 Code(s): Z78.9 - OTHER SPECIFIED HEALTH STATUS Status: Acute Current Visit: Yes (4) Rh negative status during SNOMED Code(s): 069177997 Code(s): O26.899 - OTH RELATED CONDITIONS, UNSPECIFIED TRIMESTER; Z67.91 - UNSPECIFIED BLOOD TYPE, RH NEGATIVE Status: Acute Current Visit: Yes Qualifiers: Trimester: third trimester Qualified Code(s): O26.893 - Other specified related conditions, third trimester; Z67.91 - Unspecified blood type, Rh negative (5) Failure to progress in first stage of labor SNOMED Code(s): 595132136 Code(s): VIW2190 - Status: Acute Current Visit: Yes (6) Persistent occipitoposterior position, delivered SNOMED Code(s): 440387348, 266309332 Code(s): O64.0XX0 - OBSTRUCTED LABOR DUE TO INCMPL ROTATION OF HEAD, UNSP Status: Acute Current Visit: Yes (7) S/P primary low transverse SNOMED Code(s): 343915898, 07758643, 749826295, 748469645, 421578926 Code(s): Z98.891 - HISTORY OF UTERINE SCAR FROM PREVIOUS SURGERY Status: Acute Current Visit: Yes - Problem List Review Problem List Initiated/Reviewed/Updated: Yes - My Orders Last 24 Hours: My Active Orders 07/14/20 Breakfast Regular Diet [DIET] 07/14/20 09:10 Acetaminophen/oxyCODONE [Percocet 325-5 MG] 1 tab PO Q4H PRN Acetaminophen/oxyCODONE [Percocet 325-5 MG] 2 tab PO Q4H PRN Docusate Sodium [Colace] 100 mg PO Q12H PRN Naloxone [Narcan] 0.1 mg IVPUSH SEECOMMENT PRN Ondansetron [Zofran] 4 mg IV Q8H PRN diphenhydrAMINE [Benadryl] 25 mg IVPUSH Q6H PRN 07/14/20 09:10 Antiembolic Devices [RC] PER UNIT ROUTINE Communication Order [RC] PER UNIT ROUTINE Intake and Output [RC] Q4H Notify Provider Intake and Out [RC] ASDIRECTED RT Incentive Spirometry [RC] Q2HWA Vital Signs [RC] Q4HR Assess Lochia [WOMSER] Per Unit Routine Assess Uterine Involution [WOMSER] Per Unit Routine Breast Pump [WOMSER] Per Unit Routine Heat Therapy [OM.PC] Per Unit Routine Peripheral IV Discontinue [OM.PC] Routine Sequential Compression Device [OM.PC] Per Unit Routine 07/14/20 09:11 Telemetry Monitoring [Cardiac Monitoring] [RC] . DIRECTED 07/14/20 16:25 Vaccines to be Administered [RC] 1000 07/14/20 18:46 Patient Status [ADT] Routine 07/15/20 07:30 Ibuprofen [Motrin] 600 mg PO Q6H PRN 07/15/20 09:00 Diphth,Pertuss(Acell),Tet Vac [Adacel] 0.5 ml IM .ONCE ONE - Assessment Assessment:: POD#1 - Plan Plan:: Routine cares Breast feeding Baby Rh positive, mom received Rhogam yesterday MMR prior to discharge Discharge home in 1-2 days
--- NOTE | 2020-07-15 07:50 | PCM48HPAN ---
Post Anesthesia Note - EVALUATION WITHIN 48HRS OF ANESTHETIC Vital Signs in Normal Range: Yes Patient Participated in Evaluation: Yes Respiratory Function Stable: Yes Airway Patent: Yes Cardiovascular Function Stable: Yes Hydration Status Stable: Yes Pain Control Satisfactory: Yes Nausea and Vomiting Control Satisfactory: Yes Mental Status Recovered: Yes Vital Signs: Last Vital Signs Temp 36.2 C 07/15/20 02:58 Pulse 88 07/15/20 03:00 Resp 13 07/15/20 06:00 BP 108/59 L 07/15/20 02:58 Pulse Ox 99 07/15/20 06:00 - COMMENTS/OBSERVATIONS Free Text/Narrative:: no anesthesia complications noted
[2020-07-15] MEDS ORDERED: Diphtheria,Pertussis(Acell),Tetanus Vaccine 0.5 ML Syringe IM ONE (09:00)
[2020-07-15] MEDS: Ibuprofen 600 MG Tab PO PRN ×2 (13:29→20:10)
[2020-07-16] MEDS: Acetaminophen/oxyCODONE 325-5 MG Tab PO PRN ×2 (03:34→09:10)
[2020-07-16] MEDS: Ibuprofen 600 MG Tab PO PRN (06:42)
--- NOTE | 2020-07-16 07:24 | PCM.DCSUM1 ---
Discharge Summary - Discharge Data Discharge Date: 07/16/20 Discharge Disposition: Home, Self-Care 01 Condition: Good - Referral to Home Health Primary Care Physician: Mark Suero MD - Discharge Diagnosis/Problem(s) (1) 39 weeks gestation of SNOMED Code(s): 51789420 ICD Code: Z3A.39 - 39 WEEKS GESTATION OF Status: Acute (2) Encounter for induction of labor SNOMED Code(s): 047982141 ICD Code: Z34.90 - ENCNTR FOR SUPRVSN OF NORMAL , UNSP, UNSP TRIMESTER Status: Acute (3) Not immune to rubella SNOMED Code(s): 996967815 ICD Code: Z78.9 - OTHER SPECIFIED HEALTH STATUS Status: Acute (4) Rh negative status during SNOMED Code(s): 415823325 ICD Code: O26.899 - OTH RELATED CONDITIONS, UNSPECIFIED TRIMESTER; Z67.91 - UNSPECIFIED BLOOD TYPE, RH NEGATIVE Status: Acute Qualifiers: Trimester: third trimester Qualified Code(s): O26.893 - Other specified related conditions, third trimester; Z67.91 - Unspecified blood type, Rh negative (5) Failure to progress in first stage of labor SNOMED Code(s): 285345073 ICD Code: SND9069 - Status: Acute (6) Persistent occipitoposterior position, delivered SNOMED Code(s): 074132053, 597397448 ICD Code: O64.0XX0 - OBSTRUCTED LABOR DUE TO INCMPL ROTATION OF HEAD, UNSP Status: Acute (7) S/P primary low transverse SNOMED Code(s): 505357176, 06646021, 407902046, 823551551, 925736859 ICD Code: Z98.891 - HISTORY OF UTERINE SCAR FROM PREVIOUS SURGERY Status: Acute - Patient Summary/Data Operative Procedure(s) Performed: Primary low transverse Complications: None Consults: None Recommended Follow-up Testing/Procedures: Follow up in 2-3 weeks for post op check Hospital Course: 29 y/o at 39 3/7 wks presented for elective IOL . Induction done with Cytotec, pitocin, AROM. Not able to progress beyond about 6-7 cm. Was taken for PLTCS where was found to be in ROP position. Surgery uncomplicated. did well and was discharged home on POD#2 - Patient Instructions Diet: Regular Diet as Tolerated Activity: No Lifting Over 10 Pounds Activity, Other: Pelvic rest for 6 weeks Driving: Do Not Drive (While taking Percocet) Showering/Bathing: May Shower, No Tub Bathing/Swimming Wound/Incision Care: Keep Operative Site/Wound Site Clean and Dry Notify Provider of: Fever, Increased Pain, Swelling and Redness, Drainage, Nausea and/or Vomiting - Discharge Plan *PRESCRIPTION DRUG MONITORING PROGRAM REVIEWED*: No *COPY OF PRESCRIPTION DRUG MONITORING REPORT IN PATIENT DONAVON: No Prescriptions/Med Rec: Acetaminophen/oxyCODONE [Percocet 325-5 MG] 2 tab PO Q4H PRN #25 tablet PRN Reason: Pain (Severe 7-10) Home Medications: Home Meds Pnv,Calcium 72/Iron/Folic Acid [ Vitamin Plus Low Iron] 1 each PO DAILY 07/12/20 [History] Acetaminophen/oxyCODONE [Percocet 325-5 MG] 2 tab PO Q4H PRN #25 tablet 07/15/20 [Rx] Docusate Sodium [Colace] 100 mg PO Q12H PRN cap 07/15/20 [Rx] Ibuprofen [Motrin] 600 mg PO Q6H PRN tablet 07/15/20 [Rx] Patient Handouts: Care After Delivery Referrals: Mark Suero MD [Primary Care Provider] - (3 weeks for check ) - Discharge Summary/Plan Comment DC Time >30 min.: No - Patient Data Vitals - Most Recent: Last Vital Signs Temp 36.7 C 07/16/20 03:29 Pulse 84 07/16/20 03:29 Resp 14 07/16/20 03:29 BP 124/70 07/16/20 03:29 Pulse Ox 100 07/16/20 03:29 Weight - Most Recent: 93.44 kg I&O - Last 24 hours: Intake & Output 07/15/20 07/16/20 07/16/20 22:59 06:59 14:59 Output Total 450 Balance -450 Med Orders - Current: Current Medications Diphenhydramine HCl (Diphenhydramine 50 Mg/Ml Sdv) 25 mg IVPUSH Q6H PRN PRN Reason: pruritis Diphenhydramine HCl (Diphenhydramine 50 Mg/Ml Sdv) 25 mg IVPUSH Q6H PRN PRN Reason: Itching or Nausea Docusate Sodium (Docusate Sodium 100 Mg Cap) 100 mg PO Q12H PRN PRN Reason: Constipation Last Admin: 07/15/20 20:11 Dose: 100 mg Documented by: Ephedrine Sulfate (Ephedrine 50 Mg/Ml Sdv) 5 mg IVPUSH ASDIRECTED PRN PRN Reason: Hypotension Fentanyl (Fentanyl 100 Mcg/2 Ml Sdv) 50 mcg IVPUSH Q20M PRN PRN Reason: Pain Hydromorphone HCl (Hydromorphone 0.5 Mg/0.5 Ml Syringe) 0.5 mg IVPUSH Q10M PRN PRN Reason: Pain (severe 7-10) Oxytocin/Lactated Ringer's (Pitocin In Lr 10 Units/1,000 Ml) 10 unit in 1,000 mls @ 12 mls/hr IV TITRATE [facility]; Protocol Last Titration: 07/14/20 05:28 Dose: 0 munits/min, 0 mls/hr Documented by: Ibuprofen (Ibuprofen 600 Mg Tab) 600 mg PO Q6H PRN PRN Reason: mild pain or fever Last Admin: 07/16/20 06:42 Dose: 600 mg Documented by: Measles/Mumps/Rubella Vaccine Live (Measles, Mumps & Rubella Vaccine 0.5 Ml Sdv) 0.5 ml SUBCUT .ONCE ONE Stop: 07/16/20 09:01 Naloxone HCl (Naloxone 0.4 Mg/Ml Sdv) 0.1 mg IVPUSH SEECOMMENT PRN PRN Reason: Respiratory Depression Ondansetron HCl (Ondansetron 4 Mg/2 Ml Sdv) 4 mg IVPUSH ONETIME PRN PRN Reason: Nausea/Vomiting Ondansetron HCl (Ondansetron 4 Mg/2 Ml Sdv) 4 mg IV Q8H PRN PRN Reason: Nausea/Vomiting Oxycodone/Acetaminophen (Acetaminophen/Oxycodone 325-5 Mg Tab) 1 tab PO Q4H PRN PRN Reason: Pain (moderate 4-6) Oxycodone/Acetaminophen (Acetaminophen/Oxycodone 325-5 Mg Tab) 2 tab PO Q4H PRN PRN Reason: Pain (severe 7-10) Last Admin: 07/16/20 03:34 Dose: 2 tab Documented by: Discontinued Medications Cefazolin Sodium (Cefazolin 1 Gm Vial) Confirm Administered Dose 2 gm .ROUTE .STK-MED ONE Stop: 07/14/20 07:13 Citric Acid/Sodium Citrate (Citric Acid/Sodium Citrate Solution 30 Ml Cup) 30 ml PO ONETIME ONE Stop: 07/14/20 05:38 Last Admin: 07/14/20 06:08 Dose: 30 ml Documented by: Diphenhydramine HCl (Diphenhydramine 50 Mg/Ml Sdv) 25 mg IVPUSH Q6H PRN PRN Reason: pruritis Diphtheria/Tetanus/Acell Pertussis (Diphtheria,Pertussis(Acell),Tetanus Vaccine 0.5 Ml Syringe) 0.5 ml IM .ONCE ONE Stop: 07/15/20 09:01 Ephedrine Sulfate (Ephedrine 50 Mg/Ml Sdv) 5 mg IVPUSH ASDIRECTED PRN PRN Reason: Hypotension Fentanyl (Fentanyl 100 Mcg/2 Ml Sdv) 100 mcg EPIDUR Q3H PRN PRN Reason: Pain Last Admin: 07/13/20 13:27 Dose: 100 mcg Documented by: Fentanyl (Fentanyl 100 Mcg/2 Ml Sdv) Confirm Administered Dose 100 mcg .ROUTE .[employer]MED ONE Stop: 07/14/20 07:13 Fentanyl/Bupivacaine HCl (Bupivacaine/Fentanyl/Ns 100 Ml Bag) 100 ml EPIDUR ASDIRECTED PRN PRN Reason: Pain Last Admin: 07/13/20 22:03 Dose: 100 ml Documented by: Oxytocin/Lactated Ringer's (Pitocin In Lr 10 Units/1,000 Ml) 10 unit in 1,000 mls @ 500 mls/hr IV .CONTINUOUS [facility] Lactated Ringer's (Ringers, Lactated) 1,000 mls @ 100 mls/hr IV ASDIRECTED [facility] Last Infusion: 07/14/20 06:00 Dose: 500 mls/hr Documented by: Cefazolin Sodium/Dextrose 2 gm (/ Premix) 50 mls @ 100 mls/hr IV ONETIME ONE Stop: 07/14/20 06:06 Azithromycin 500 mg/ Sodium (Chloride) 250 mls @ 250 mls/hr IV ONETIME ONE Stop: 07/14/20 06:36 Last Admin: 07/14/20 06:06 Dose: 250 mls/hr Documented by: Lactated Ringer's (Ringers, Lactated) Confirm Administered Dose 2,000 mls @ as directed .ROUTE .STK-MED ONE Stop: 07/14/20 07:13 Dextrose/Lactated Ringer's (Dextrose 5%-Lactated Ringers) 1,000 mls @ 125 mls/hr IV ASDIRECTED [facility] Stop: 07/14/20 17:09 Last Admin: 07/14/20 11:01 Dose: 125 mls/hr Documented by: Ketorolac Tromethamine (Ketorolac 30 Mg/Ml Sdv) Confirm Administered Dose 30 mg .ROUTE .STK-MED ONE Stop: 07/14/20 07:13 Ketorolac Tromethamine (Ketorolac 30 Mg/Ml Sdv) 30 mg IVPUSH Q6H [facility] Stop: 07/15/20 01:31 Last Admin: 07/15/20 01:32 Dose: 30 mg Documented by: Lidocaine HCl (Lidocaine 1% 50 Ml Mdv) 50 ml INJECT ONETIME PRN PRN Reason: Breakthrough Pain Lidocaine/Epinephrine (Lidocaine 2% With Epinephrine 1:200,000 20 Ml Sdv) Confirm Administered Dose 20 ml .ROUTE .STK-MED ONE Stop: 07/14/20 07:17 Metoclopramide HCl (Metoclopramide 10 Mg/2 Ml Sdv) 10 mg IVPUSH ONETIME ONE Stop: 07/14/20 05:38 Last Admin: 07/14/20 06:14 Dose: 10 mg Documented by: Miscellaneous Medication (Phenylephrine Hcl In 0.9% Nacl 1 Mg/10 Ml Syringe) 0 mg IVPUSH ONETIME ONE Stop: 07/14/20 07:02 Last Admin: 07/15/20 01:44 Dose: Not Given Documented by: Miscellaneous Medication (Phenylephrine Hcl In 0.9% Nacl 1 Mg/10 Ml Syringe) Confirm Administered Dose 1 mg .ROUTE .STK-MED ONE Stop: 07/14/20 07:17 Misoprostol (Misoprostol 25 Mcg (1/4 Of 100 Mcg) Tab) 25 mcg VAG Q4H PRN PRN Reason: cervical ripening Last Admin: 07/13/20 00:41 Dose: 25 mcg Documented by: Nalbuphine HCl (Nalbuphine 10 Mg/1 Ml Vial) 10 mg IVPUSH Q2H PRN PRN Reason: Pain Ondansetron HCl (Ondansetron 4 Mg/2 Ml Sdv) Confirm Administered Dose 4 mg .ROUTE .STK-MED ONE Stop: 07/14/20 07:13 Oxytocin (Oxytocin 10 Units/1 Ml Sdv) Confirm Administered Dose 10 unit .ROUTE .STK-MED ONE Stop: 07/14/20 07:13 Sodium Chloride (Sodium Chloride 0.9% 10 Ml Syringe) 10 ml FLUSH ASDIRECTED PRN PRN Reason: Keep Vein Open
[2020-07-16] MEDS ORDERED: Measles, Mumps & Rubella Vaccine 0.5 ML SDV SUBCUT ONE (09:00)
[2020-07-16] MEDS ORDERED: Diphtheria,Pertussis(Acell),Tetanus Vaccine 0.5 ML Syringe IM ONE (09:15)
== END 2020-07-16 10:10 | disposition home or self-care (01) | DRG 788 ==
LOC: JD.OB 07:06 → OBSVTOIN 07-14 07:06 → INTOOBSV 07-14 07:06 → JD.OB 07-14 07:07 → OBSVTOIN 07-14 08:24 → JD.OB 07-14 08:25 → UNDODISIN 07-16 10:10
PROVIDERS: ADMIT Obstetrics & Gynecology; ATTEND Obstetrics & Gynecology
PROC: 10D00Z1 Extraction of Products of Conception, Low, Open Approach (ICD-10-PCS; principal; 2020-07-14)
PROC: 10907ZC Drainage of Amniotic Fluid, Therapeutic from Products of Conception, Via Natural or Artificial Opening (ICD-10-PCS; 2020-07-14)
PROC: 3E0P7VZ Introduction of Hormone into Female Reproductive, Via Natural or Artificial Opening (ICD-10-PCS; 2020-07-14)
PROC: 3E033VJ Introduction of Other Hormone into Peripheral Vein, Percutaneous Approach (ICD-10-PCS; 2020-07-14)
PROC: 10H07YZ Insertion of Other Device into Products of Conception, Via Natural or Artificial Opening (ICD-10-PCS; 2020-07-14)
PROC: 3E0334Z Introduction of Serum, Toxoid and Vaccine into Peripheral Vein, Percutaneous Approach (ICD-10-PCS; 2020-07-14)
DX: O64.0XX0 Obstructed labor due to incomplete rotation of fetal head, not applicable or unspecified (principal); Z37.0 Single live birth; O62.2 Other uterine inertia; Z3A.39 39 weeks gestation of pregnancy; O76 Abnormality in fetal heart rate and rhythm complicating labor and delivery; O26.893 Other specified pregnancy related conditions, third trimester; Z20.822 Contact with and (suspected) exposure to COVID-19; Z67.41 Type O blood, Rh negative
CPT/HCPCS: 01967; 01968; 36415; 36430; 51702; 59025; 85025; 85027; 85461; 86592; 86850; 86900; 86901; 90471; 90715; 94762; A9270-GY; J0456; J0690; J1885; J2270; J2370; J2405; J2590; J2765; J2790; J3010; J3490; J7050; J7120; J7121; U0002

== ENCOUNTER 2020-12-09 23:17 | Emergency (ER) | payer MEDICAID ==
--- NOTE | 2020-12-09 23:58 | EDM.PDOC ---
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 bleeding 2 to 3 days ago. Had some very heavy vag bleeding 2 days ago, passing clots, possible tissue. Had a positive preg test at home 8 days ago with follow up positive preg test at clinic 7 days ago. Still having some vaginal bleeding today but not as heavy. No current pelvic pain or cramping. No chest or shoulder pain. Discharge instr. as documented. - Related Data Allergies Allergy/AdvReac Type Severity Reaction Status Date / Time Latex, Natural Rubber Allergy Hives Verified 07/12/20 13:36 Home Meds: Home Meds Pnv,Calcium 72/Iron/Folic Acid [ Vitamin Plus Low Iron] 1 each PO DAILY 07/12/20 [History] Acetaminophen/oxyCODONE [Percocet 325-5 MG] 2 tab PO Q4H PRN #25 tablet 07/15/20 [Rx] Docusate Sodium [Colace] 100 mg PO Q12H PRN cap 07/15/20 [Rx] Ibuprofen [Motrin] 600 mg PO Q6H PRN tablet 07/15/20 [Rx] Past Medical History - Past Health History Medical/Surgical History: Denies Medical/Surgical History HEENT History: Reports: None Genitourinary History: Reports: Other (See Below) 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: Psychiatric History: Reports: Anxiety - Infectious Disease History Infectious Disease History: Reports: None - Past Surgical History HEENT Surgical History: Reports: Oral Surgery Social & Family History - Family History Family Medical History: No Pertinent Family History - Caffeine Use Caffeine Use: Reports: None ED ROS GENERAL - Review of Systems Review Of Systems: See Below Constitutional: Denies: Fever, Chills, Diaphoresis HEENT: Reports: No Symptoms Respiratory: Denies: Shortness of Breath, Pleuritic Chest Pain Cardiovascular: Denies: Chest Pain GI/Abdominal: Denies: Abdominal Pain, Nausea, Vomiting : Reports: Other (vaginal bleeding) Musculoskeletal: Denies: Shoulder Pain, Back Pain Skin: Reports: No Symptoms Neurological: Denies: Dizziness ED EXAM, RENAL/ - Physical Exam Exam: See Below General Appearance: Alert, No Apparent Distress Head: Atraumatic Neck: Supple Respiratory/Chest: No Respiratory Distress, Lungs Clear, Normal Breath Sounds Cardiovascular: Regular Rate, Rhythm GI/Abdominal: Soft, Non-Tender. No: Guarding (Female) Exam: Vaginal Bleeding (small amt of dark blood post vaginal vault at time of exam, no tissue or clots visible, cvx not dilated at time of exam) Back Exam: No: CVA Tenderness (L), CVA Tenderness (R) Neurological: Alert, Oriented, No Motor/Sensory Deficits Skin Exam: Warm, Dry, Normal Color Course - Vital Signs Last Recorded V/S: Last Vital Signs Temp 96.2 F L 12/09/20 23:39 Pulse 65 12/10/20 01:25 Resp 16 12/10/20 01:25 BP 104/71 12/10/20 01:25 Pulse Ox 96 12/10/20 01:25 - Orders/Labs/Meds Labs: Laboratory Tests 12/10/20 12/10/20 12/10/20 Range/Units 00:09 00:09 00:09 WBC 6.05 (3.98-10.04) K/mm3 RBC 4.68 (3.98-5.22) M/mm3 Hgb 13.3 D (11.2-15.7) gm/dl Hct 38.9 (34.1-44.9) % MCV 83.1 D (79.4-94.8) fl MCH 28.4 (25.6-32.2) pg MCHC 34.2 (32.2-35.5) g/dl RDW Std Deviation 46.2 (36.4-46.3) fL Plt Count 232 (182-369) K/mm3 MPV 11.0 (9.4-12.3) fl Neut % (Auto) 43.2 (34.0-71.1) % Lymph % (Auto) 38.2 (19.3-51.7) % [place] % (Auto) 13.2 H (4.7-12.5) % Eos % (Auto) 3.1 (0.7-5.8) Baso % (Auto) 2.3 H (0.1-1.2) % Neut # (Auto) 2.61 (1.56-6.13) K/mm3 Lymph # (Auto) 2.31 (1.18-3.74) K/mm3 [place] # (Auto) 0.80 H (0.24-0.36) K/mm3 Eos # (Auto) 0.19 (0.04-0.36) K/mm3 Baso # (Auto) 0.14 H (0.01-0.08) K/mm3 HCG, Quant 11.0 mIU/mL Blood Type O NEGATIVE Rhogam Indicated Yes - Re-Assessments/Exams Free Text/Narrative Re-Assessment/Exam: 12/17/20 07:19 Hcg quant only 11. no intrauterine gest. sac. At time of exam not having heavy bleeding. Departure - Departure Time of Disposition: 02:12 Disposition: Home, Self-Care 01 Condition: Fair Clinical Impression: Complete - Discharge Information Instructions: Miscarriage Referrals: Mark Suero MD [Primary Care Provider] - Forms: ED Department Discharge Additional Instructions: Rest. Drink plenty of water to maintain hydration. Follow up with your regular medical provider or Dr Suero as needed. Return to ED as needed, especially for severe bleeding or unexplained light headedness or dizziness. Sepsis Event Note (ED) - Evaluation Sepsis Screening Result: No Definite Risk
--- NOTE | 2020-12-10 07:29 | US ---
First trimester obstetrical ultrasound: Multiple real-time images were obtained transvaginally. Comparison: No prior obstetrical imaging is available for this . Uterus is retroverted. No intrauterine gestational sac is seen. Small amount of free fluid is seen which is believed to be physiologic. Follicles are seen within both ovaries. Small abnormality is noted within the right ovary measuring 2.1 cm which is slightly complicated which most likely represents a collapsing corpus luteum cyst. Impression: 1. Findings believed to be incidental as noted above. 2. No intrauterine gestational sac is seen. 3. If patient has a positive test, study could represent too early to visualize, incompletely seen ectopic , or failed . Diagnostic code #2 I agree with preliminary report from [facility], finalized on 12/10/20, 3:02 PM CDT, code 1
== END 2020-12-10 03:00 | disposition home or self-care (01) ==
LOC: JD.ED 23:17
DX: O03.9 Complete or unspecified spontaneous abortion without complication (principal); Z91.040 Latex allergy status
CPT/HCPCS: 36415; 36430; 76817; 76817-26; 84702; 85025; 86900; 86901; 99283; 99284-25; J2790

== ENCOUNTER 2021-09-10 04:09 | Inpatient (IN) | payer MEDICAID ==
[~2021-09-10 04:09] MED LIST: Sodium Chloride 0.9% 10 ML Syringe FLUSH PRN
[2021-09-10] MEDS: Lactated Ringers 1,000 ML IV SCH ×2 (06:05→06:06)
[2021-09-10] MEDS ORDERED: ceFAZolin 2 GM in Sodium Chloride 0.9% 50 ML IV ONE ×2 (06:45→07:30)
[2021-09-10] MEDS ORDERED: Oxytocin 10 Units/1 ML SDV ONE ×2 (06:49→06:50)
[2021-09-10] MEDS ORDERED: Morphine PF 10 MG/10 ML SDV ONE (06:54)
[2021-09-10] MEDS ORDERED: fentaNYL 100 MCG/2 ML SDV ONE (06:55)
[2021-09-10] MEDS ORDERED: Metoclopramide 10 MG/2 ML SDV IVPUSH ONE ×2 (07:00→07:30)
[2021-09-10] MEDS ORDERED: Oxytocin/Lactated Ringers 20 UNIT/1,000 ML BAG IV SCH ×2 (07:00→07:30)
[2021-09-10] MEDS ORDERED: Citric Acid/Sodium Citrate Solution 30 ML Cup PO ONE ×2 (07:00→07:30)
[2021-09-10] MEDS ORDERED: fentaNYL 100 MCG/2 ML SDV IVPUSH PRN (07:12)
[2021-09-10] MEDS ORDERED: Meperidine 50 MG/ML Vial IVPUSH PRN (07:12)
[2021-09-10] MEDS ORDERED: Ondansetron 4 MG/2 ML SDV IVPUSH PRN (07:12)
[2021-09-10] MEDS ORDERED: diphenhydrAMINE 50 MG/ML SDV IVPUSH PRN ×2 (07:12→10:29)
[2021-09-10] MEDS ORDERED: Bupivacaine 0.5% 30 ML SDV ONE (07:15)
[2021-09-10] MEDS ORDERED: Sodium Chloride 0.9% 10 ML Syringe FLUSH PRN (07:20)
[2021-09-10] MEDS ORDERED: Lactated Ringers 1,000 ML ONE (07:21)
[2021-09-10] MEDS ORDERED: ceFAZolin 1 GM Vial ONE (07:36)
[2021-09-10] MEDS ORDERED: Ketorolac 30 MG/ML SDV ONE (08:15)
[2021-09-10] MEDS ORDERED: Sodium Chloride 0.9% 10 ML Syringe FLUSH SCH ×2 (09:00)
[2021-09-10] MEDS ORDERED: ePHEDrine 50 MG/ML SDV IVPUSH PRN (10:29)
[2021-09-10] MEDS ORDERED: Docusate Sodium 100 MG Cap PO PRN (10:29)
[2021-09-10] MEDS ORDERED: Naloxone 0.4 MG/ML SDV IVPUSH PRN (10:29)
[2021-09-10] MEDS ORDERED: Ondansetron 4 MG/2 ML SDV IV PRN (10:29)
[2021-09-10] MEDS ORDERED: Dextrose 5%-Lactated Ringers 1,000 ML IV SCH (10:29)
[2021-09-10] MEDS: Prenatal Multivitamin with Calcium/Folic Acid/Iron Tab PO SCH (12:23)
[2021-09-10] MEDS: Simethicone 80 MG Tab.Chew PO SCH ×3 (12:39→20:37)
[2021-09-10] MEDS: Acetaminophen/oxyCODONE 325-5 MG Tab PO PRN ×2 (12:51→20:07)
[2021-09-10] MEDS: Ibuprofen 800 MG Tab PO SCH ×2 (14:48→22:48)
[2021-09-11] MEDS: Acetaminophen/oxyCODONE 325-5 MG Tab PO PRN ×5 (04:26→22:10)
[2021-09-11] MEDS: Ibuprofen 800 MG Tab PO SCH ×3 (07:40→23:37)
[2021-09-11] MEDS: Simethicone 80 MG Tab.Chew PO SCH ×4 (08:45→20:59)
[2021-09-11] MEDS: Prenatal Multivitamin with Calcium/Folic Acid/Iron Tab PO SCH (13:12)
[2021-09-12] MEDS: Acetaminophen/oxyCODONE 325-5 MG Tab PO PRN ×4 (03:43→11:43)
[2021-09-12] MEDS: Ibuprofen 800 MG Tab PO SCH (07:45)
[2021-09-12] MEDS: Prenatal Multivitamin with Calcium/Folic Acid/Iron Tab PO SCH (11:14)
[2021-09-12] MEDS: Simethicone 80 MG Tab.Chew PO SCH (11:14)
== END 2021-09-12 11:45 | disposition home or self-care (01) | DRG 788 ==
LOC: JD.OB 04:43
PROVIDERS: ADMIT Obstetrics & Gynecology; ATTEND Obstetrics & Gynecology
PROC: 10D00Z1 Extraction of Products of Conception, Low, Open Approach (ICD-10-PCS; principal; 2021-09-10)
DX: O34.211 Maternal care for low transverse scar from previous cesarean delivery (principal); Z37.0 Single live birth; Z3A.39 39 weeks gestation of pregnancy; Z87.442 Personal history of urinary calculi; Z91.040 Latex allergy status
CPT/HCPCS: 01961; 36415; 59025; 85025; 85461; 86592; 86850; 86900; 86901; 87340; 94762; A9270-GY; J0690; J1885; J2274; J2370; J2405; J2590; J2765; J2790; J3010; J3490; J7120; J7121

== ENCOUNTER 2022-01-16 13:14 | Day surgery (SDC) | payer MEDICAID ==
[2022-01-16] MEDS ORDERED: Ondansetron 4 MG/2 ML SDV ONE (13:17)
[2022-01-16] MEDS ORDERED: Midazolam 1 MG/ML 2 ML SDV ONE (13:17)
[2022-01-16] MEDS ORDERED: Propofol 200 MG/20 ML SDV ONE (13:17)
[2022-01-16] MEDS ORDERED: fentaNYL 100 MCG/2 ML SDV ONE (13:17)
[2022-01-16] MEDS ORDERED: Rocuronium 50 MG/5 ML Vial ONE (13:17)
[2022-01-16] MEDS ORDERED: Lidocaine 1% 2 ML ONE (13:17)
[2022-01-16] MEDS ORDERED: Bupivacaine 0.5% 30 ML SDV ONE (13:18)
[2022-01-16] MEDS ORDERED: HYDROmorphone 0.5 MG/0.5 ML Syringe IVPUSH PRN (14:01)
[2022-01-16] MEDS ORDERED: Ondansetron 4 MG/2 ML SDV IVPUSH PRN (14:01)
[2022-01-16] MEDS ORDERED: Lactated Ringers 1,000 ML IV SCH (14:15)
[2022-01-16] MEDS ORDERED: Sugammadex Sodium 200 MG/2 ML VIAL ONE (14:53)
[2022-01-16] MEDS: fentaNYL 100 MCG/2 ML SDV IVPUSH PRN ×2 (15:40→15:45)
[2022-01-16] MEDS ORDERED: Acetaminophen/oxyCODONE 325-5 MG Tab PO ONE (16:30)
== END 2022-01-16 17:00 | disposition home or self-care (01) ==
LOC: JD.SDS 13:14 → JD.ED 13:14 → EDSTATUS 13:15 → JD.SDS 17:00
PROVIDERS: ATTEND Obstetrics & Gynecology
DX: O00.102 Left tubal pregnancy without intrauterine pregnancy (principal); O34.80 Maternal care for other abnormalities of pelvic organs, unspecified trimester; N83.202 Unspecified ovarian cyst, left side; O99.330 Smoking (tobacco) complicating pregnancy, unspecified trimester; O99.340 Other mental disorders complicating pregnancy, unspecified trimester; O99.619 Diseases of the digestive system complicating pregnancy, unspecified trimester; K21.9 Gastro-esophageal reflux disease without esophagitis; Z91.040 Latex allergy status; Z79.899 Other long term (current) drug therapy; Z98.890 Other specified postprocedural states; Z32.01 Encounter for pregnancy test, result positive
CPT/HCPCS: 36415; 59151; 84144; 84702; 85025; 86850; 86870; 86900; 86901; A9270; J2250; J2405; J2704; J3010; J3490; J7120; 00840

== ENCOUNTER 2023-07-26 06:42 | Inpatient (IN) | payer MEDICAID ==
[2023-07-26] MEDS ORDERED: Metoclopramide 10 MG/2 ML SDV IVPUSH ONE (11:15)
[2023-07-26] MEDS ORDERED: Oxytocin/Lactated Ringers 30 UNIT/500 ML BAG IV SCH (11:15)
[2023-07-26] MEDS ORDERED: Citric Acid/Sodium Citrate Solution 30 ML Cup PO ONE (11:15)
[2023-07-26 11:50] LABS: BASOPHILS PERCENT AUTO 0.2 % (0.0-1.0); EOSINOPHILS ABSOLUTE AUTO 0.2 K/mm3 (0.0-0.4); EOSINOPHILS PERCENT AUTO 1.5 % (0.0-6.0); HEMOGLOBIN 11.3 gm/dl (12.0-16.0); IMMATURE GRAN ABSOLUTE AUTO 0.07 K/mm3 (0.00-0.05); IMMATURE GRAN PERCENT AUTO 0.7 % (0.0-0.4); LYMPHOCYTES ABSOLUTE AUTO 1.1 K/mm3 (1.0-4.8); LYMPHOCYTES PERCENT AUTO 11.2 % (24.0-44.0); MEAN CORPUSCULAR HGB CONC 33.2 g/dl (32.0-36.0); MEAN PLATELET VOLUME 11.2 fl (9.4-12.3); MONOCYTES PERCENT AUTO 9.9 % (0.0-8.0); NEUTROPHILS ABSOLUTE AUTO 7.6 K/mm3 (1.8-7.7); NEUTROPHILS PERCENT AUTO 76.5 % (41.0-71.0); PLATELET COUNT,PLT 183 K/mm3 (150-400); RED BLOOD CELL COUNT 4.04 M/mm3 (4.10-5.30); WHITE BLOOD CELL COUNT,WBC 9.91 K/mm3 (3.9-11.3)
[2023-07-26 11:51] LABS: MEAN CORPUSCULAR VOLUME 84.2 fl (83.0-99.0)
[2023-07-26] MEDS: Lactated Ringers 1,000 ML IV SCH (15:00)
[2023-07-26] MEDS: Citric Acid/Sodium Citrate Solution 30 ML Cup PO ONE (19:45)
[2023-07-26] MEDS: Metoclopramide 10 MG/2 ML SDV IVPUSH ONE (19:46)
[2023-07-26] MEDS ORDERED: fentaNYL 100 MCG/2 ML SDV ONE (20:29)
[2023-07-26] MEDS ORDERED: Oxytocin 10 Units/1 ML SDV ONE (20:29)
[2023-07-26] MEDS ORDERED: Morphine PF 10 MG/10 ML SDV ONE (20:30)
[2023-07-26] MEDS ORDERED: ceFAZolin 2 GM Vial ONE (20:45)
[2023-07-26] MEDS ORDERED: Lidocaine 1% 5 ML VIAL ONE (20:54)
[2023-07-26] MEDS: ceFAZolin 2 GM in Sodium Chloride 0.9% 50 ML IV ONE (20:58)
[2023-07-26] MEDS ORDERED: Phenylephrine 1% 10 MG/ML SDV ONE (21:00)
[2023-07-26] MEDS ORDERED: Lactated Ringers 1,000 ML ONE (21:08)
[2023-07-26] MEDS ORDERED: Ketorolac 30 MG/ML SDV ONE (21:16)
[2023-07-26] MEDS ORDERED: Ondansetron 4 MG/2 ML SDV ONE (21:16)
[2023-07-26] MEDS ORDERED: Lidocaine 1% 6 ML ONE (21:22)
[2023-07-26] MEDS ORDERED: fentaNYL 100 MCG/2 ML SDV IVPUSH PRN (21:49)
[2023-07-26] MEDS ORDERED: diphenhydrAMINE 50 MG/ML SDV IVPUSH PRN ×2 (21:49→22:11)
[2023-07-26] MEDS ORDERED: Naloxone 0.4 MG/ML SDV IVPUSH PRN (22:11)
[2023-07-26] MEDS ORDERED: Sodium Chloride 0.9% 10 ML Syringe FLUSH PRN (22:11)
[2023-07-26] MEDS ORDERED: ePHEDrine 50 MG/ML SDV IVPUSH PRN (22:11)
[2023-07-26] MEDS ORDERED: Ibuprofen 600 MG Tab PO PRN (22:11)
[2023-07-26] MEDS ORDERED: Acetaminophen/oxyCODONE 325-5 MG Tab PO PRN (22:11)
[2023-07-26] MEDS: Acetaminophen/oxyCODONE 325-5 MG Tab PO PRN (23:30)
[2023-07-26] MEDS: Dextrose 5%-Lactated Ringers 1,000 ML IV SCH (23:32)
[2023-07-27] MEDS: Ondansetron 4 MG/2 ML SDV IVPUSH PRN (02:12)
[2023-07-27] MEDS: Ketorolac 30 MG/ML SDV IVPUSH SCH (04:26)
[2023-07-27] MEDS: Docusate Sodium 100 MG Cap PO PRN (04:33)
[2023-07-27] MEDS: Sodium Chloride 0.9% 10 ML Syringe FLUSH SCH (10:34)
[2023-07-27 15:09] LABS: HEMATOCRIT 31.8 % (37.0-47.0); HEMOGLOBIN 10.3 gm/dl (12.0-16.0); MEAN CORPUSCULAR HEMOGLOBIN 27.8 pg (28.0-32.0); MEAN CORPUSCULAR HGB CONC 32.4 g/dl (32.0-36.0); MEAN CORPUSCULAR VOLUME 85.9 fl (83.0-99.0); MEAN PLATELET VOLUME 10.2 fl (9.4-12.3); PLATELET COUNT,PLT 148 K/mm3 (150-400); WHITE BLOOD CELL COUNT,WBC 6.88 K/mm3 (3.9-11.3)
[2023-07-27] MEDS: Simethicone 80 MG Tab.Chew PO PRN (16:38)
[2023-07-27] MEDS: Pantoprazole 40 MG Tab.CR PO ONE (23:15)
[2023-07-27] MEDS: Ibuprofen 600 MG Tab PO PRN (23:16)
[2023-07-28] MEDS: Measles, Mumps & Rubella Vaccine 0.5 ML SDV SUBCUT ONE (12:15)
[2023-07-28] MEDS ORDERED: Pantoprazole 40 MG Tab.CR PO ONE (22:46)
== END 2023-07-28 13:27 | disposition home or self-care (01) | DRG 788 ==
LOC: JD.OB 06:42
PROVIDERS: ADMIT Obstetrics & Gynecology; ATTEND Obstetrics & Gynecology
PROC: 3E0234Z Introduction of Serum, Toxoid and Vaccine into Muscle, Percutaneous Approach (ICD-10-PCS; 2023-07-26)
PROC: 10D00Z1 Extraction of Products of Conception, Low, Open Approach (ICD-10-PCS; principal; 2023-07-26 18:30)
DX: O34.211 Maternal care for low transverse scar from previous cesarean delivery (principal); O26.893 Other specified pregnancy related conditions, third trimester; Z3A.37 37 weeks gestation of pregnancy; Z37.0 Single live birth; Z87.891 Personal history of nicotine dependence; Z91.040 Latex allergy status; Z67.41 Type O blood, Rh negative; Z98.890 Other specified postprocedural states; Z90.79 Acquired absence of other genital organ(s); Z23 Encounter for immunization
CPT/HCPCS: 01961; 36415; 59025; 85025; 85027; 85461; 86592; 86850; 86870; 86900; 86901; 90471; 90707; 94762; A9270-GY; J0690; J1885; J2274; J2371; J2405; J2590; J2765; J2790; J3010; J3490; J7120; J7121